=== PATIENT | female | born 2000 | race African-American/Black ===

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

== ENCOUNTER → 2021-07-30 | Outpatient (CLI) | payer OTHER, BC ==
--- NOTE | 2021-07-30 16:06 | Diagnostic Imaging Report ---
INDICATION: Left foot pain. TECHNIQUE: AP, oblique, and lateral views of the left foot were obtained. FINDINGS: No fracture or acute bony abnormality is seen. The joint spaces are unremarkable. IMPRESSION: Negative left foot. Dictated by: Dictated on workstation # [id number]
== END ==
LOC: RAD FS 13:12
PROVIDERS: ATTEND Nurse Practitioner
DX: M79.672 Pain in left foot (principal)
CPT/HCPCS: 73630